=== PATIENT | female | born 1995 | race Hispanic/Latino ===

== ENCOUNTER 2020-08-17 14:23 | Emergency (ER) | payer OTHER ==
--- OUTSIDE RECORDS SUMMARY | 2020-08-17 14:26 | XMS REPORT | Continuity of Care Document ---
:1995 Author Organization [facility] t Address [address] [place] [address] [address] [place] [address] Care Team Providers Name Role Phone Only, Test Attending Clinician Unavailable Doctor Unassigned, Name Attending Clinician Unavailable Lab, Fam Pob I Attending Clinician Unavailable Kevin Richardson MD Attending Clinician Problems This patient has no known problems. Allergies, Adverse Reactions, Alerts This patient has no known allergies or adverse reactions. Medications This patient has no known medications. Procedures This patient has no known procedures. Encounters Start End Encounter Admission Attending Care Care Encounter Source Date/Time Date/Time Type Type Clinicians Facility Department ID 2020-03-06 2020-03-06 Laboratory Only, [facility] [id number] 10:21:18 10:36:18 Only Test [facility] [id number] [place] [id number] [place] [id number] 2020-03-06 2020-03-06 Orders Doctor PARKINSON [id number] 00:00:00 00:00:00 Only Unassigned, [facility] [id number] [facility] [id number] [id number] 2019-08-23 2019-08-23 Laboratory Lab, [facility] [id number] 10:31:49 10:51:49 Only Fam Pob I [facility] [id number] [place] [id number] [facility] [phone] [address] 2018-10-11 2018-10-11 Emergency Debra [facility] [id number] 08:57:50 10:35:00 Colby Navarrete [id number] [place] [id number] [place] [id number] 2018-10-11 2018-10-11 Orders Doctor IGGY [id number] 00:00:00 00:00:00 Only Unassigned, [facility] [id number] [facility] [id number] Results This patient has no known results.
[2020-08-17] MEDS ORDERED: ONDANSETRON 4 MG/2 ML VIAL ONE ×2 (14:39→15:14)
[2020-08-17] MEDS ORDERED: FENTANYL CITR 100 MCG/2 ML ONE ×2 (14:39→15:26)
[2020-08-17] MEDS ORDERED: MORPHINE 4 MG/ML SYR ONE (15:14)
[2020-08-17] MEDS ORDERED: NA CHLORIDE 0.9% 1,000 ML ONE (15:14)
[2020-08-17 15:25] LABS: Absolute Lymphocytes (CBC) 1.9 K/uL (0.7-4.9); Basophils % 0.3 % (0-1.3); Lymphocytes % 11.5 % (15.3-44.8); MPV 8.5 fL (7.6-11.3); RBC Red Blood Cell Count 4.94 M/uL (3.86-4.86)
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
[2020-08-17 15:42] LABS: Potassium 3.7 mmol/L (3.5-5.1)
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
[2020-08-17 16:48] VITALS: TEMP 97.9
[2020-08-17 16:50] VITALS: O2SAT 100
[2020-08-17 16:51] VITALS: BP 114/72
== END 2020-08-17 16:39 | disposition home or self-care (01) ==
LOC: ER 14:23
DX: S20.319A Abrasion of unspecified front wall of thorax, initial encounter (principal); S30.811A Abrasion of abdominal wall, initial encounter; S60.512A Abrasion of left hand, initial encounter; V49.40XA Driver injured in collision with unspecified motor vehicles in traffic accident, initial encounter
CPT/HCPCS: 96361; 85025; 80048; 36415; 86900; 86850; 86901; 70450; 72125; 71260; 74177; 96375; 96374; 99284; Q9967; J3010 ×2; J7030; J2405 ×2